=== PATIENT | male | born 1970 | race American Indian/Alaskan Native ===

== ENCOUNTER 2019-04-01 11:55 | Inpatient (IN) | payer MEDICAID ==
--- NOTE | 2019-04-01 12:17 | Emergency Department Report ---
ED Medical Clearance HPI - General Chief complaint: High BP Stated complaint: HBP Source: patient, EMS (ems notes not available at time of chart dictation), RN notes reviewed Mode of arrival: Stretcher Limitations: Physical Limitation - History of Present Illness Initial comments: This is a 48-year-old gentleman. The patient is not known to this provider previously. He reports his primary care doctor is at [facility], but cannot recall their name. He reportedly has a history of hypertension, noncompliant with medications for 6-8 weeks; does not recall the names of his medications. Does not know what pharmacy gets his medications from. Also has a history of stroke, with left-sided weakness. The patient is brought to the hospital by emergency medical services for a checkup. The patient's daughter is here as a patient for nonrelated reasons, and apparently, the patient started was involved in a 911 call involving police. When police kuldeep owens, they saw this patient, Mr. Cook, and they suggested he call ambulance to "get checked out for high blood pressure." Patient denies headache, neck pain, chest pain, abdominal pain, shortness of breath. He has no complaints at this time. He is at his neurologic baseline, and endorses chronic weakness in his left arm and left leg, which is not new, worsening or different. MD Complaint: other Reason for Medical Clearance: other Compliant with Home Medications: No Traumatic Symptoms: denies traumatic injury Allergies/Adverse reactions: Allergies Allergy/AdvReac Type Severity Reaction Status Date / Time No Known Allergies Allergy Unverified 04/01/19 12:06 ED Review of Systems ROS: Stated complaint: HBP Other details as noted in HPI Comment: All other systems reviewed and negative ED Past Medical Hx - Past Medical History Previous Medical History?: Yes Hx Hypertension: Yes Hx CVA: Yes - Social History Smoking Status: Never Smoker Substance Use Type: None ED Physical Exam - General Limitations: Physical Limitation General appearance: alert, in no apparent distress - Head Head exam: Present: atraumatic, normocephalic - Eye Eye exam: Present: normal appearance, PERRL, EOMI, other (visual acuity intact to finger counting, color perception, reading at a close distance). Absent: nystagmus - ENT ENT exam: Present: normal exam, normal orophraynx, mucous membranes moist, normal external ear exam - Neck Neck exam: Present: normal inspection, full ROM. Absent: tenderness, meningismus - Respiratory Respiratory exam: Present: normal lung sounds bilaterally. Absent: respiratory distress - Cardiovascular Cardiovascular Exam: Present: regular rate, normal rhythm, systolic murmur. Absent: tachycardia, irregular rhythm, diastolic murmur, rubs, gallop - GI/Abdominal GI/Abdominal exam: Present: soft. Absent: distended, tenderness, guarding, rebound, rigid, pulsatile mass - Rectal Rectal exam: Present: deferred - Extremities Exam Extremities exam: Present: normal inspection, other (2+ pulses noted in the bilateral upper, lower extremities. Compartments soft. No long bony tenderness. The pelvis is stable.). Absent: tenderness, calf tenderness - Back Exam Back exam: Present: normal inspection, full ROM. Absent: tenderness, CVA tenderness (R), CVA tenderness (L), paraspinal tenderness, vertebral tenderness - Neurological Exam Neurological exam: Present: alert, oriented X3, motor sensory deficit, other (there is chronic weakness in the left arm, left leg, 4 out of 5 strength left arm, left leg. There is no facial droop. The tongue is midline. Extraocular movement are intact bilaterally. There is 5 out of 5 strength right arm, right leg. Sensation is intact to light touch right arm, right leg, left arm, left leg) - Psychiatric Psychiatric exam: Present: normal affect, normal mood - Skin Skin exam: Present: warm, dry, intact, normal color. Absent: rash ED Course Vital Signs 04/01/19 04/01/19 12:06 13:14 Temperature 99.1 F Pulse Rate 85 92 H Respiratory 18 Rate Blood Pressure 248/120 245/120 O2 Sat by Pulse 98 Oximetry - Reevaluation(s) Reevaluation #1: 04/01/19 14:40 Dr Ramirez to admit ED Medical Decision Making - Lab Data Result diagrams: 04/01/19 13:09 04/01/19 12:20 Vital Signs 04/01/19 04/01/19 12:06 13:14 Temperature 99.1 F Pulse Rate 85 92 H Respiratory 18 Rate Blood Pressure 248/120 245/120 O2 Sat by Pulse 98 Oximetry Lab Results 04/01/19 04/01/19 Range/Units 12:20 13:09 WBC 7.4 (4.5-11.0) K/mm3 RBC 4.55 (3.65-5.03) M/mm3 Hgb 13.1 (11.8-15.2) gm/dl Hct 38.7 (35.5-45.6) % MCV 85 (84-94) fl MCH 29 (28-32) pg MCHC 34 (32-34) % RDW 13.5 (13.2-15.2) % Plt Count 302 (140-440) K/mm3 Sodium 144 (137-145) mmol/L Potassium 3.1 L (3.6-5.0) mmol/L Chloride 102.5 (98-107) mmol/L Carbon Dioxide 27 (22-30) mmol/L Anion Gap 18 mmol/L BUN 22 H (9-20) mg/dL Creatinine 2.1 H (0.8-1.5) mg/dL Estimated GFR 41 ml/min BUN/Creatinine Ratio 10 % Glucose 89 (75-100) mg/dL Calcium 9.5 (8.4-10.2) mg/dL Magnesium 2.00 (1.7-2.3) mg/dL Total Creatine Kinase 232 H (55-170) units/L - EKG Data -: EKG Interpreted by Nh EKG shows normal: sinus rhythm - EKG Data When compared to previous EKG there are: previous EKG unavailable 04/01/19 14:04 This is a normal sinus rhythm, 93 bpm, normal axis, QTC prolonged, DE interval prolonged, not having chest pain, ST depressions in multiple leads, poor R-wave progression, left ventricular hypertrophy, abnormal EKG, not consistent with ST elevation myocardial infarction. - Medical Decision Making Differential diagnosis, including not limited to: Hypertension urgency, medication noncompliance, vasomotor nephropathy, hypertensive nephropathy Assessment and plan: 48-year-old gentleman who presents to the emergency room for a checkup, felt to be fairly hypertensive, no pain, also found to have e vidence of acute renal insufficiency. The patient will be admitted to the medical service for medical optimization. He will be given hydralazine, Norvasc, and his potassium will be repleted. Hospital physicians paged to arrange admission. Discussed hospitalization with patient, who verbalizes un derstanding, and who is amenable to hospitalization. ED Disposition Clinical Impression: Hypertensive urgency, malignant, Noncompliance with medication regimen, Renal insufficiency Disposition: DC-09 OP ADMIT IP TO THIS HOSP Is pt being admited?: Yes Does the pt Need Aspirin: Yes Condition: Fair Referrals: JOANA WU MD [Primary Care Provider] - 3-5 Days
[2019-04-01] MEDS ORDERED: APRESOLINE IV ONE ×2 (12:18→13:50)
[2019-04-01] MEDS ORDERED: NACL 0.9% 500 ML 500 ML IV ONE (12:18)
[2019-04-01 12:59] LABS: Calcium 9.5 mg/dL (8.4-10.2)
[2019-04-01 13:28] LABS: Hematocrit 38.7 % (35.5-45.6); Hemoglobin 13.1 gm/dl (11.8-15.2); Mean Corpuscular HGB Conc 34 % (32-34); Mean Corpuscular Volume 85 fl (84-94); Platelet Count 302 K/mm3 (140-440); Red Blood Count 4.55 M/mm3 (3.65-5.03); Red Cell Distribution Width 13.5 % (13.2-15.2)
[2019-04-01] MEDS ORDERED: NORVASC PO ONE (13:50)
[2019-04-01] MEDS ORDERED: K-DUR PO ONE ×2 (13:54→21:28)
[2019-04-01] MEDS ORDERED: BABY ASPIRIN PO ONE (13:56)
[2019-04-01 14:19] LABS: Bilirubin,Urine NEG (Negative); Blood,Urine NEG (Negative); Color,Urine Straw (Yellow); Mucus,Urine FEW /HPF; Urobilinogen,Urine < 2.0 mg/dL (<2.0); WBC,Urine < 1.0 /HPF (0.0-6.0)
[2019-04-01 14:27] LABS: Creatinine,Urine 84.3 mg/dL (0.1-20.0)
[2019-04-01] MEDS ORDERED: SODIUM CHLORIDE FLUSH SYRINGE 10 ML IV PRN (21:20)
[2019-04-01] MEDS ORDERED: TYLENOL PO PRN (21:20)
[2019-04-01] MEDS ORDERED: IBUPROFEN PO PRN (21:20)
[2019-04-01] MEDS ORDERED: ZOFRAN IV PRN (21:20)
[2019-04-01] MEDS ORDERED: MORPHINE IV PRN (21:20)
[2019-04-01] MEDS: COREG PO SCH (21:47)
[2019-04-01] MEDS: PEPCID PO SCH (21:49)
[2019-04-01] MEDS: SODIUM CHLORIDE FLUSH SYRINGE 10 ML IV SCH (21:50)
[2019-04-01] MEDS ORDERED: PEPCID PO SCH (22:00)
[2019-04-01] MEDS ORDERED: COZAAR PO SCH (22:00)
[2019-04-02] MEDS: APRESOLINE IV PRN ×2 (05:32→20:25)
--- NOTE | 2019-04-02 05:56 | Event Note ---
Date: 04/01/19 See H/p in eports-dictated HTN emergency Soraida Noncompliance
--- NOTE | 2019-04-02 07:36 | Progress Note ---
Assessment and Plan - Patient Problems (1) Acute kidney injury Current Visit: Yes Status: Acute Plan to address problem: RADHA on CKD ATN IV fluids for now Nephrology consult requested (2) Hypertensive urgency, malignant Current Visit: Yes Status: Acute Plan to address problem: Patient initiated on antihypertensives and IV Hydralazinr prn.IV Hydralazine g iven in ER (3) Noncompliance with medication regimen Current Visit: Yes Status: Chronic Plan to address problem: Patient counselled repeatedly (4) CKD (chronic kidney disease) Current Visit: Yes Status: Chronic Qualifiers: Chronic kidney disease stage: stage 3 (moderate) Qualified Code(s): N18.3 - Chronic kidney disease, stage 3 (moderate) Plan to address problem: Present on admission Chronic parenchymatous changes in Kidney c/w CKD (5) Hypokalemia Current Visit: Yes Status: Acute Plan to address problem: corrected (6) Hyperparathyroidism Current Visit: Yes Status: Chronic Plan to address problem: sec to CKD (7) DVT prophylaxis Current Visit: Yes Status: Acute Plan to address problem: On Heparin and GI prophylaxis Subjective Date of service: 04/02/19 Principal diagnosis: Hypertensive emergency CKD on admission Interval history: 48-year-old gentleman with history of hypertension, noncompliant with medications for 6-8 weeks; does not recall the names of his medications. Does not know what pharmacy gets his medications from. Also has a history of stroke, with left-sided weakness. The patient is brought to the hospital by emergency medical services for high BP. Apparently, the patient was involved in a 911 call involving police. When police arrived, they saw this patient, Mr. Cook, and they suggested he call ambulance to "get checked out for high blood pressure." Patient denies headache, neck pain, chest pain, abdominal pain, shortness of mame ath. He has no complaints at this time. He is at his neurologic baseline, and endorses chronic weakness in his left arm and left leg, which is not new, worsening or different. No sob.No chest pain. Objective - Constitutional Vitals: Vital Signs - 12hr 04/01/19 04/01/19 04/01/19 19:41 19:45 20:01 Temperature Pulse Rate 93 H 89 103 H Respiratory 12 20 22 Rate Blood Pressure 208/110 203/124 176/120 Blood Pressure [Right] O2 Sat by Pulse 97 98 97 Oximetry 04/01/19 04/01/19 04/01/19 20:15 20:30 20:45 Temperature Pulse Rate 97 H 90 92 H Respiratory 20 21 18 Rate Blood Pressure 176/120 195/99 195/99 Blood Pressure [Right] O2 Sat by Pulse 98 98 98 Oximetry 04/01/19 04/01/19 04/01/19 21:01 21:21 21:44 Temperature 98.0 F Pulse Rate 96 H 111 H 96 H Respiratory 19 16 18 Rate Blood Pressure 195/99 197/111 Blood Pressure 188/85 [Right] O2 Sat by Pulse 99 98 98 Oximetry 04/01/19 04/02/19 04/02/19 23:46 01:22 03:46 Temperature 98.0 F Pulse Rate 92 H 71 Respiratory 18 22 Rate Blood Pressure 149/89 Blood Pressure [Right] O2 Sat by Pulse 97 Oximetry 04/02/19 03:55 Temperature 98.0 F Pulse Rate 81 Respiratory 18 Rate Blood Pressure 173/96 Blood Pressure [Right] O2 Sat by Pulse 96 Oximetry General appearance: Present: no acute distress, well-nourished - EENT Eyes: PERRL, EOM intact ENT: hearing intact, clear oral mucosa Ears: bilateral: normal - Neck Neck: supple, normal ROM - Respiratory Respiratory effort: normal Respiratory: bilateral: CTA - Breasts Breasts: normal - Cardiovascular Rhythm: regular Heart Sounds: Present: S1 & S2. Absent: gallop, rub Extremities: no ischemia, pulses intact, No edema, normal color, Full ROM - Gastrointestinal General gastrointestinal: Present: soft, non-tender, non-distended, normal bowel sounds - Genitourinary Male genitourinary: normal - Integumentary Integumentary: clear, warm, dry - Musculoskeletal Musculoskeletal: 1, strength equal bilaterally - Neurologic Neurologic: moves all extremities - Psychiatric Psychiatric: memory intact, appropriate mood/affect, intact judgment & insight - Labs CBC & Chem 7: 04/02/19 07:55 04/03/19 09:42 Labs: Abnormal lab results 04/01/19 04/01/19 Range/Units 12:20 14:04 Potassium 3.1 L (3.6-5.0) mmol/L BUN 22 H (9-20) mg/dL Creatinine 2.1 H (0.8-1.5) mg/dL Total Creatine Kinase 232 H (55-170) units/L Urine Creatinine 84.3 H (0.1-20.0) mg/dL Short CBC 04/01/19 Range/Units 13:09 WBC 7.4 (4.5-11.0) K/mm3 Hgb 13.1 (11.8-15.2) gm/dl Hct 38.7 (35.5-45.6) % Plt Count 302 (140-440) K/mm3 BMP 04/01/19 12:20 Sodium 144 Potassium 3.1 L Chloride 102.5 Carbon Dioxide 27 BUN 22 H Creatinine 2.1 H Glucose 89 Calcium 9.5 Cardiac Enzymes 04/01/19 Range/Units 12:20 Total Creatine Kinase 232 H (55-170) units/L Urine 04/01/19 Range/Units 14:04 Urine Color Straw (Yellow) Urine pH 7.0 (5.0-7.0) Ur Specific [place] 1.011 (1.003-1.030) Urine Protein 100 mg/dl (Negative) mg/dL Urine Glucose (UA) 50 (Negative) mg/dL - Imaging and cardiology EKG: report reviewed
[2019-04-02 08:32] LABS: Basophils # (Auto) 0.1 K/mm3 (0.0-0.1); Basophils % (Auto) 0.9 % (0.0-1.8); Eosinophils # (Auto) 0.1 K/mm3 (0.0-0.4); Eosinophils % (Auto) 0.7 % (0.0-4.3); Hematocrit 38.5 % (35.5-45.6); Hemoglobin 13.1 gm/dl (11.8-15.2); Lymphocytes # (Auto) 1.7 K/mm3 (1.2-5.4); Lymphocytes % (Auto) 22.7 % (13.4-35.0); Mean Corpuscular HGB Conc 34 % (32-34); Mean Corpuscular Volume 85 fl (84-94); Monocytes # (Auto) 0.6 K/mm3 (0.0-0.8); Platelet Count 333 K/mm3 (140-440); Red Blood Count 4.56 M/mm3 (3.65-5.03); Red Cell Distribution Width 13.8 % (13.2-15.2)
[2019-04-02 08:53] LABS: Calcium 9.4 mg/dL (8.4-10.2)
[2019-04-02] MEDS: PEPCID PO SCH ×2 (09:23→21:09)
[2019-04-02] MEDS: NORVASC PO SCH (09:23)
[2019-04-02] MEDS: COREG PO SCH ×2 (09:23→21:09)
[2019-04-02] MEDS: HEPARIN SUB-Q SCH ×2 (09:24→21:09)
[2019-04-02] MEDS: SODIUM CHLORIDE FLUSH SYRINGE 10 ML IV SCH ×2 (09:35→21:09)
--- NOTE | 2019-04-02 09:45 | History and Physical Report ---
CHIEF COMPLAINT: Sent in for high blood pressure. HISTORY OF PRESENT ILLNESS: A 48-year-old -[place] male with history of hypertension, noncompliant for the last 6-8 weeks, comes in for high blood pressure. The patient came by EMS for high blood pressure. The patient called 911. The patient denies any headache, chest pain, shortness of breath. No other complaints except for high blood pressure. The patient has not been taking blood pressure medication for the last 6-8 weeks. The patient does not know the names of his blood pressure medications. PAST MEDICAL HISTORY: Hypertension, cerebrovascular accident with slight residual left-sided weakness. PAST SURGICAL HISTORY: None. SOCIAL HISTORY: Does not smoke. No alcohol, no recreational drugs. FAMILY HISTORY: Hypertension. REVIEW OF SYSTEMS: Significant for no complaints. A 14-point review of systems done. High blood pressure. PHYSICAL EXAMINATION: GENERAL: Young male, cooperative during examination. VITAL SIGNS: Initial blood pressure was very high 248/120, temperature was 99.1, pulse is 94, respiratory rate is 18. HEENT: Unremarkable. Pupils equal and reactive. NECK: Supple, no lymphadenopathy, no thyromegaly. Fundus exam consistent with hypertension. No papilledema. NECK: Supple, no lymphadenopathy, no thyromegaly. LUNGS: Clear to auscultation and percussion. Good air entry. CARDIOVASCULAR: S1, S2 heard. No gallop, no murmur, no rub. Apical impulse in left fifth intercostal space and midclavicular line. ABDOMEN: Soft and benign. No hepatosplenomegaly. No guarding, no rigidity. Hernial orifices are normal. EXTREMITIES: Good pedal pulses. No pedal edema. CENTRAL NERVOUS SYSTEM: Alert and oriented x 4, nonfocal exam. SKIN: Normal. LABORATORY DATA: Significant for normal CBC. Electrolytes: Sodium is 144, potassium is 3.1, BUN and creatinine is 22 and 2.1, magnesium is 2.0. Urine is normal. Urine creatinine is 84.3. EKG shows LVH. Heart rate of 78 per minute. ASSESSMENT AND PLAN: 1. Hypertensive emergency. The patient initiated on IV hydralazine and IV labetalol in the Emergency Room. The patient was also initiated on losartan 100 mg once a day and amlodipine 10 mg once a day, Coreg 12.5 b.i.d. IV hydralazine 10 mg to be given every 3. hours. 2. Acute kidney injury. IV fluids for now, but the patient probably has underlying chronic kidney disease secondary to hypertension. Nephrology consult requested. 3. Hypokalemia, supplemented. 4. Deep venous thrombosis prophylaxis, heparin 5000 q. 12. JOB# [id number] CECE/MIGUEL SANDERSOND
--- NOTE | 2019-04-02 10:32 | XRay Report ---
AP CHEST: HISTORY: Acute kidney injury AP view of the chest demonstrates a normal mediastinal and cardiac contour with clear lungs and normal bony and soft tissue structures. IMPRESSION: Unremarkable AP chest.
[2019-04-02] MEDS ORDERED: NORMODYNE IV ONE (11:30)
--- NOTE | 2019-04-02 13:58 | Ultrasound Report ---
ULTRASOUND RENAL BILATERAL HISTORY: Acute kidney injury. TECHNIQUE: transabdominal ultrasound with color Doppler interrogation. FINDINGS: The right kidney measures 8.3 x 4.2 x 4.5cm. Right renal cortex: 1.1cm. The left kidney measures 8.9 x 4.0 x 4.9cm. Left renal cortex: 1.1cm. Both kidneys are slightly atrophic with increased cortical echotexture. There is no evidence for cystic disease, mass, calculus or hydronephrosis. The views of the bladder and the region of the ureters appear normal. IMPRESSION: Chronic renal parenchymal disease. No hydronephrosis.
--- NOTE | 2019-04-02 14:17 | Consultation ---
History of Present Illness - Reason for Consult acute renal failure - History of Present Illness 48-year-old gentleman with medical history significant for hypertension, previous CVA in 2015 and 2018 with left-sided deficits and speech problems was was in the hospital after being seen by the EMS at home with elevated blood pressures. He denies any orthopnea. Denies any lower extremity swelling denies any nausea vomiting abdominal pain denies any NSAID use denies any frequent urinary tract infections denies any kidney stones he has not had any follow-up by primary care provider he does have a sister who was on dialysis had diabetes. He admits to noncompliance with his medications because he complains of difficulty with swallowing pills Medications and Allergies Allergies Allergy/AdvReac Type Severity Reaction Status Date / Time No Known Allergies Allergy Verified 04/01/19 21:27 Home Medications Medication Instructions Recorded Confirmed Last Taken Type No Known Home Medications [No 04/01/19 04/01/19 Unknown History Reported Home Medications] Active Meds: Active Medications Acetaminophen (Tylenol) 650 mg PO Q4H PRN PRN Reason: Pain MILD(1-3)/Fever >100.5/OROZCO Amlodipine Besylate (Norvasc) 10 mg PO QDAY [facility] Last Admin: 04/02/19 09:23 Dose: 10 mg Documented by: Carvedilol (Coreg) 12.5 mg PO BID [facility] Last Admin: 04/02/19 09:23 Dose: 12.5 mg Documented by: Famotidine (Pepcid) 10 mg PO BID [facility] Last Admin: 04/02/19 09:23 Dose: 10 mg Documented by: Heparin Sodium (Porcine) (Heparin) 5,000 unit SUB-Q Q12HR [facility] Last Admin: 04/02/19 09:24 Dose: 5,000 unit Documented by: Hydralazine HCl (Apresoline) 10 mg IV Q3H PRN PRN Reason: Blood Pressure Last Admin: 04/02/19 05:32 Dose: 10 mg Documented by: Morphine Sulfate (Morphine) 2 mg IV Q4H PRN PRN Reason: Pain, Moderate (4-6) Ondansetron HCl (Zofran) 4 mg IV Q8H PRN PRN Reason: Nausea And Vomiting Sodium Chloride (Sodium Chloride Flush Syringe 10 Ml) 10 ml IV BID [facility] Last Admin: 04/02/19 09:35 Dose: 10 ml Documented by: Sodium Chloride (Sodium Chloride Flush Syringe 10 Ml) 10 ml IV PRN PRN PRN Reason: LINE FLUSH Review of Systems Constitutional: no weight loss, no weight gain Ears, nose, mouth and throat: no deferred, no ear pain, no ear discharge Cardiovascular: no chest pain, no orthopnea Respiratory: no cough, no cough with sputum Gastrointestinal: no abdominal pain, no nausea, no vomiting Genitourinary Male: no dysuria, no hematuria, no flank pain Rectal: no pain, no incontinence Musculoskeletal: no neck stiffness, no neck pain Neurological: no head injury, no transient paralysis Psychiatric: no anxiety, no memory loss Endocrine: no cold intolerance, no heat intolerance Hematologic/Lymphatic: no easy bruising, no easy bleeding Exam - Vital Signs Vital signs: Vital Signs Pulse Resp 94 H 18 04/01/19 11:56 04/01/19 11:56 - General Appearance General appearance: well-developed, well-nourished EENT: ATNC, PERRL, mucous membranes moist Neck: Present: neck supple, trachea midline Respiratory: Clear to Ascultation Heart: regular, normal heart rate, S1S2 Gastrointestinal: Present: normal, normoactive bowel sounds. Absent: tenderness, distended Integumentary: no rash Neurologic: alert and oriented x3, upper extremity weakness, other (reduced strength left lower extremity 4/5 ) Musculoskeletal: Present: clubbing, decreased ROM Psychiatric: mood/affect appropriate Results - Lab Results 04/02/19 07:55 04/02/19 07:39 Most recent lab results Calcium 9.4 mg/dL (8.4-10.2) 04/02/19 07:39 Magnesium 2.00 mg/dL (1.7-2.3) 04/01/19 12:20 84.3 mg/dL (0.1-20.0) H 04/01/19 14:04 107 mmol/L 04/01/19 14:04 Assessment and Plan - Patient Problems (1) Acute kidney injury Current Visit: Yes Status: Acute Plan to address problem: Acute kidney injury versus chronic kidney disease Current creatinine 2.0 mg/dl Has significant history of uncontrolled hypertension Suspect this is chronic kidney disease check PTH and renal ultrasound We'll give gentle fluids for the next 24 hours and monitor response Recheck renal function panel Hold losartan for now and avoid ibuprofen (2) Hypertensive urgency, malignant Current Visit: Yes Status: Acute Plan to address problem: Hypertensive urgency Received medications We'll give labetalol 20 mg IV Oral medications resume May need a patch as he has significant difficulty with swallowing due to previous stroke (3) Hypokalemia Current Visit: Yes Status: Acute Plan to address problem: Hypokalemia We'll give 40 mEq potassium chloride Check magnesium level (4) Anemia Current Visit: Yes Status: Acute Plan to address problem: Mild anemia Hemoglobin 13 g/dl Obtain an anemia panel beater CBC
[2019-04-02] MEDS ORDERED: K-DUR PO ONE (15:24)
[2019-04-02] MEDS: NACL 0.9% 1000 ML 1,000 ML IV SCH (16:28)
[2019-04-03] MEDS: NACL 0.9% 1000 ML 1,000 ML IV SCH (07:53)
[2019-04-03] MEDS: NORVASC PO SCH (09:46)
[2019-04-03] MEDS: COREG PO SCH ×3 (09:47→22:32)
[2019-04-03] MEDS: PEPCID PO SCH ×2 (09:47→22:32)
[2019-04-03] MEDS: APRESOLINE IV PRN ×2 (09:48→17:51)
[2019-04-03] MEDS: HEPARIN SUB-Q SCH ×2 (09:48→22:33)
[2019-04-03] MEDS: SODIUM CHLORIDE FLUSH SYRINGE 10 ML IV SCH ×2 (09:49→22:33)
[2019-04-03 10:18] LABS: Calcium 8.8 mg/dL (8.4-10.2)
--- NOTE | 2019-04-03 10:48 | Progress Note ---
Assessment and Plan - Patient Problems (1) Acute kidney injury Current Visit: Yes Status: Acute Plan to address problem: Acute kidney injury versus chronic kidney disease Current creatinine 2.1-2.3 mg/dl Has significant history of uncontrolled hypertension Suspect this is chronic kidney disease check PTH Renal ultrasound with small kidneys consistent hypertensive nephrosclerosis Discontinue intravenous fluids as renal function has not improved with fluids and this appears more chronic Reviewed urinalysis proteinuria Recheck renal function panel Hold losartan for now and avoid ibuprofen (2) Hypertensive urgency, malignant Current Visit: Yes Status: Acute Plan to address problem: Hypertensive urgency uncontrolled hypertension/uncontrolled hypertension Received medications Discontinue intravenous fluids Increase Coreg to 25 mg twice a day Continue rest of medications May need a patch as he has significant difficulty with swallowing due to pre vious stroke (3) Hypokalemia Current Visit: Yes Status: Acute Plan to address problem: Hypokalemia Potassium 3.5 We'll give 20 mEq potassium chloride Magnesium within normal levels (4) Anemia Current Visit: Yes Status: Acute Plan to address problem: Mild anemia Hemoglobin 13 g/dl Obtain an anemia manager monitoring CBC Subjective Interval history: 48-year-old gentleman with medical history significant for hypertension, previous CVA in 2014 and 2017 with left-sided deficits and speech problems was was in the hospital after being seen by the EMS at home with elevated blood pressures. He denies any orthopnea. Denies any lower extremity swelling denies any nausea vomiting abdominal pain denies any NSAID use Patient seen today denies any shortness of breath orthopnea PND Slight rise in creatinine noted Received losartan on arrival which has been discontinued Objective - Vital Signs Vital signs: Vital Signs - 12hr 04/02/19 04/03/19 04/03/19 23:28 04:02 08:22 Temperature 98.6 F 98.5 F 98.4 F Pulse Rate 82 89 71 Respiratory 18 18 16 Rate Blood Pressure 150/78 169/93 198/94 O2 Sat by Pulse 95 98 100 Oximetry 04/03/19 04/03/19 04/03/19 09:46 09:47 09:48 Temperature Pulse Rate 90 90 90 Respiratory Rate Blood Pressure 215/104 215/104 215/104 O2 Sat by Pulse Oximetry - General Appearance General appearance: well-developed, well-nourished EENT: ATNC, PERRL, mucous membranes moist Neck: no JVD Respiratory: Present: Decreased Breath Sounds Cardiology: regular, S1S2 Gastrointestinal: normal, normoactive bowel sounds Integumentary: no rash Neurologic: alert and oriented x3, other (left sided weakness) Psychiatric: mood/affect appropriate - Lab 04/02/19 07:55 04/03/19 09:42 Most recent lab results Calcium 8.8 mg/dL (8.4-10.2) 04/03/19 09:42 Magnesium 2.20 mg/dL (1.7-2.3) 04/02/19 15:16 84.3 mg/dL (0.1-20.0) H 04/01/19 14:04 107 mmol/L 04/01/19 14:04 - Imaging Chest x-ray: image reviewed (I reviewed chest x-ray without and with pulmonary edema) Medications & Allergies - Medications Allergies/Adverse Reactions: Allergies No Known Allergies Allergy (Verified 04/01/19 21:27) Home Medications: Home Medications Medication Instructions Recorded Confirmed Last Taken Type No Known Home Medications [No 04/01/19 04/01/19 Unknown History Reported Home Medications] Active Medications: Generic Name Dose Route Start Last Admin Trade Name Freq PRN Reason Stop Dose Admin Acetaminophen 650 mg 04/01/19 21:20 Tylenol PO Q4H PRN Pain MILD(1-3)/Fever >100.5/OROZCO Amlodipine Besylate 10 mg 04/02/19 10:00 04/03/19 09:46 Norvasc PO 10 mg QDAY ANABELA Administration Famotidine 10 mg 04/01/19 22:00 04/03/19 09:47 Pepcid PO 10 mg BID ANABELA Administration Heparin Sodium (Porcine) 5,000 unit 04/02/19 10:00 04/03/19 09:48 Heparin SUB-Q 5,000 unit Q12HR ANABELA Administration Hydralazine HCl 20 mg 04/02/19 20:37 04/03/19 09:48 Apresoline IV 20 mg Q4H PRN Administration Blood Pressure Sodium Chloride 1,000 mls @ 100 mls/hr 04/02/19 15:00 04/03/19 07:53 Nacl 0.9% 1000 Ml IV 100 mls/hr DIRECT ANABELA Administration Morphine Sulfate 2 mg 04/01/19 21:20 Morphine IV Q4H PRN Pain, Moderate (4-6) Ondansetron HCl 4 mg 04/01/19 21:20 Zofran IV Q8H PRN Nausea And Vomiting Sodium Chloride 10 ml 04/01/19 22:00 04/03/19 09:49 Sodium Chloride Flush Syringe 10 Ml IV 10 ml BID ANABELA Administration Sodium Chloride 10 ml 04/01/19 21:20 Sodium Chloride Flush Syringe 10 Ml IV PRN PRN LINE FLUSH
[2019-04-03] MEDS ORDERED: K-DUR PO ONE (17:48)
--- NOTE | 2019-04-03 17:48 | Progress Note ---
Assessment and Plan - Patient Problems (1) Acute kidney injury Current Visit: Yes Status: Acute Plan to address problem: RADHA on CKD ATN IV fluids for now Nephrology consult requested (2) Hypertensive urgency, malignant Current Visit: Yes Status: Acute Plan to address problem: Patient initiated on antihypertensives and IV Hydralazinr prn.IV Hydralazine g iven in ER (3) Noncompliance with medication regimen Current Visit: Yes Status: Chronic Plan to address problem: Patient counselled repeatedly (4) CKD (chronic kidney disease) Current Visit: Yes Status: Chronic Qualifiers: Chronic kidney disease stage: stage 3 (moderate) Qualified Code(s): N18.3 - Chronic kidney disease, stage 3 (moderate) Plan to address problem: Present on admission Chronic parenchymatous changes in Kidney c/w CKD (5) Hypokalemia Current Visit: Yes Status: Acute Plan to address problem: corrected (6) Hyperparathyroidism Current Visit: Yes Status: Chronic Plan to address problem: sec to CKD (7) DVT prophylaxis Current Visit: Yes Status: Acute Plan to address problem: On Heparin and GI prophylaxis (8) Discharge planning issues Current Visit: Yes Status: Acute Plan to address problem: Probable discharge tomorrow if BP and K level normal Subjective Date of service: 04/03/19 Principal diagnosis: Hypertensive emergency CKD on admission Interval history: 48-year-old gentleman with history of hypertension, noncompliant with medications for 6-8 weeks; does not recall the names of his medications. Does not know what pharmacy gets his medications from. Also has a history of stroke, with left-sided weakness. The patient is brought to the hospital by emergency medical services for high BP. Apparently, the patient was involved in a 911 call involving police. When police arrived, they saw this patient, Mr. Cook, and they suggested he call ambulance to "get checked out for high blood pressure." Patient denies headache, neck pain, chest pain, abdominal pain, shortness of breath. He has no complaints at this time. He is at his neurologic baseline, and endorses chronic weakness in his left arm and left leg, which is not new, worsening or different. No sob.No chest pain. Doing better Objective - Constitutional Vitals: Vital Signs - 12hr 04/03/19 04/03/19 04/03/19 08:22 09:46 09:47 Temperature 98.4 F Pulse Rate 71 90 90 Respiratory 16 Rate Blood Pressure 198/94 215/104 215/104 Blood Pressure [Right] O2 Sat by Pulse 100 Oximetry 04/03/19 04/03/19 04/03/19 09:48 10:00 12:45 Temperature Pulse Rate 90 68 84 Respiratory 18 18 Rate Blood Pressure 215/104 Blood Pressure 157/85 [Right] O2 Sat by Pulse 98 Oximetry 04/03/19 14:57 Temperature 97.7 F Pulse Rate 75 Respiratory 16 Rate Blood Pressure 170/75 Blood Pressure [Right] O2 Sat by Pulse 98 Oximetry General appearance: Present: no acute distress, well-nourished - EENT Eyes: PERRL, EOM intact ENT: hearing intact, clear oral mucosa Ears: bilateral: normal - Neck Neck: supple, normal ROM - Respiratory Respiratory effort: normal Respiratory: bilateral: CTA - Breasts Breasts: normal - Cardiovascular Heart rate: 78 Rhythm: regular Heart Sounds: Present: S1 & S2. Absent: gallop, rub Extremities: pulses intact, No edema, normal color, Full ROM - Gastrointestinal General gastrointestinal: Present: soft, non-tender, non-distended, normal bowel sounds - Genitourinary Male genitourinary: normal - Integumentary Integumentary: clear, warm, dry - Musculoskeletal Musculoskeletal: 1, strength equal bilaterally - Neurologic Neurologic: moves all extremities - Psychiatric Psychiatric: memory intact, appropriate mood/affect, intact judgment & insight - Allied health notes Allied health notes reviewed: nursing, case management - Labs CBC & Chem 7: 04/02/19 07:55 04/03/19 09:42 Labs: Abnormal lab results 04/03/19 Range/Units 09:42 Potassium 3.5 L (3.6-5.0) mmol/L Carbon Dioxide 21 L (22-30) mmol/L BUN 25 H (9-20) mg/dL Creatinine 2.3 H (0.8-1.5) mg/dL Glucose 135 H (75-100) mg/dL Renal U/s Chronic parenchuymal changes
[2019-04-03] MEDS ORDERED: COREG PO SCH (18:00)
[2019-04-04 06:46] LABS: Basophils # (Auto) 0.1 K/mm3 (0.0-0.1); Eosinophils # (Auto) 0.1 K/mm3 (0.0-0.4); Eosinophils % (Auto) 1.7 % (0.0-4.3); Hematocrit 38.2 % (35.5-45.6); Hemoglobin 12.8 gm/dl (11.8-15.2); Lymphocytes # (Auto) 2.2 K/mm3 (1.2-5.4); Lymphocytes % (Auto) 36.8 % (13.4-35.0); Mean Corpuscular HGB Conc 33 % (32-34); Mean Corpuscular Volume 87 fl (84-94); Monocytes # (Auto) 0.6 K/mm3 (0.0-0.8); Monocytes % (Auto) 9.6 % (0.0-7.3); Platelet Count 305 K/mm3 (140-440); Red Blood Count 4.42 M/mm3 (3.65-5.03); Red Cell Distribution Width 13.5 % (13.2-15.2)
[2019-04-04 07:12] LABS: Albumin 3.7 g/dL (3.9-5)
[2019-04-04] MEDS: NORVASC PO SCH (09:40)
[2019-04-04] MEDS: COREG PO SCH (09:40)
[2019-04-04] MEDS: HEPARIN SUB-Q SCH (09:40)
[2019-04-04] MEDS: PEPCID PO SCH (09:40)
[2019-04-04] MEDS: SODIUM CHLORIDE FLUSH SYRINGE 10 ML IV SCH (09:42)
--- NOTE | 2019-04-04 10:26 | Progress Note ---
Assessment and Plan - Patient Problems (1) Chronic kidney disease (CKD) stage G3b/A2, moderately decreased glomerular filtration rate (GFR) between 30-44 mL/min/1.73 square meter and albuminuria creatinine ratio between 30-299 mg/g Current Visit: Yes Status: Acute Plan to address problem: chronic kidney disease Current creatinine 2.1-2.3 mg/dl Has significant history of uncontrolled hypertension Suspect this is chronic kidney disease check PTH Renal ultrasound with small kidneys consistent hypertensive nephrosclerosis Discontinue intravenous fluids as renal function has not improved with fluids and this appears more chronic Reviewed urinalysis proteinuria I suspect this is all chronic kidney disease He needs HTN control can be discharged home with follow up at Nephrology clinic. (2) Hypertensive urgency, malignant Current Visit: Yes Status: Acute Plan to address problem: Hypertensive urgency uncontrolled hypertension/uncontrolled hypertension Received medications Discontinue intravenous fluids Increase Coreg to 25 mg twice a day Continue rest of medications May need a patch as he has significant difficulty with swallowing due to prev ious stroke (3) Hypokalemia Current Visit: Yes Status: Acute Plan to address problem: Hypokalemia Potassium 3.4 We'll give 40 mEq potassium chloride Magnesium within normal levels (4) Anemia Current Visit: Yes Status: Acute Plan to address problem: Mild anemia Hemoglobin 13 g/dl 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 He denies any orthopnea. Denies any lower extremity swelling denies any nausea vomiting abdominal pain denies any NSAID use Patient seen today denies any shortness of breath orthopnea PND blood pressure improving denies any fever or chills anxious to be discharged. Objective - Vital Signs Vital signs: Vital Signs - 12hr 04/03/19 04/03/19 04/04/19 22:32 23:13 04:10 Temperature 98.6 F 98.3 F Pulse Rate 94 H 69 60 Respiratory 18 19 Rate Blood Pressure 179/89 138/60 154/71 O2 Sat by Pulse 95 95 Oximetry - General Appearance General appearance: well-developed, well-nourished EENT: ATNC, PERRL, mucous membranes moist Neck: no JVD, thyromegaly Respiratory: Present: Clear to Ascultation Cardiology: regular, S1S2 Gastrointestinal: normal, normoactive bowel sounds Integumentary: no rash Neurologic: no focal deficit, alert and oriented x3 Psychiatric: mood/affect appropriate - Lab 04/04/19 05:41 04/04/19 05:41 Most recent lab results Calcium 9.0 mg/dL (8.4-10.2) 04/04/19 05:41 Magnesium 2.20 mg/dL (1.7-2.3) 04/02/19 15:16 84.3 mg/dL (0.1-20.0) H 04/01/19 14:04 107 mmol/L 04/01/19 14:04 - Imaging Chest x-ray: image reviewed (I reviewed CXR without overt edema. ) Medications & Allergies - Medications Allergies/Adverse Reactions: Allergies No Known Allergies Allergy (Verified 04/01/19 21:27) Home Medications: Home Medications Medication Instructions Recorded Confirmed Last Taken Type No Known Home Medications [No 04/01/19 04/01/19 Unknown History Reported Home Medications] Active Medications: Generic Name Dose Route Start Last Admin Trade Name Freq PRN Reason Stop Dose Admin Acetaminophen 650 mg 04/01/19 21:20 Tylenol PO Q4H PRN Pain MILD(1-3)/Fever >100.5/OROZCO Amlodipine Besylate 10 mg 04/02/19 10:00 04/04/19 09:40 Norvasc PO 10 mg QDAY ANABELA Administration Carvedilol 25 mg 04/03/19 18:00 04/04/19 09:40 Coreg PO 25 mg Q12HR ANABELA Administration Famotidine 10 mg 04/01/19 22:00 04/04/19 09:40 Pepcid PO 10 mg BID ANABELA Administration Heparin Sodium (Porcine) 5,000 unit 04/02/19 10:00 04/04/19 09:40 Heparin SUB-Q 5,000 unit Q12HR ANABELA Administration Hydralazine HCl 20 mg 04/02/19 20:37 04/03/19 17:51 Apresoline IV 20 mg Q4H PRN Administration Blood Pressure Morphine Sulfate 2 mg 04/01/19 21:20 Morphine IV Q4H PRN Pain, Moderate (4-6) Ondansetron HCl 4 mg 04/01/19 21:20 Zofran IV Q8H PRN Nausea And Vomiting Sodium Chloride 10 ml 04/01/19 22:00 04/04/19 09:42 Sodium Chloride Flush Syringe 10 Ml IV 10 ml BID ANABELA Administration Sodium Chloride 10 ml 04/01/19 21:20 Sodium Chloride Flush Syringe 10 Ml IV PRN PRN LINE FLUSH
[2019-04-04] MEDS ORDERED: K-DUR PO NR (11:00)
--- NOTE | 2019-04-04 16:44 | Discharge Summary ---
Providers - Providers Date of Admission: 04/01/19 14:41 Date of discharge: 04/04/19 Attending physician: RAHAT CRUZ 04/02/19 06:05 Consult to Physician [CONS] Routine Comment: Consulting Provider: OMID FLOYD Physician Instructions: Reason For Exam: RADHA/CKD [facility] care physician: [facility] Hospitalization Condition: Fair Pertinent studies: Renal Ultrasound Chronic renal parenchymal disease Hospital course: (1) Acute kidney injury with CKD Current Visit: Yes Status: Acute Plan to address problem: RADHA on CKD ATN IV fluids for now Nephrology consult requested Chronic kidney disease (CKD) stage G3b/A2, moderately decreased glomerular filtration rate (GFR) between 30-44 mL/min/1.73 square meter and albuminuria creatinine ratio between 30-299 mg/g Current Visit: Yes Status: Acute Plan to address problem: chronic kidney disease Current creatinine 2.1-2.3 mg/dl Has significant history of uncontrolled hypertension Suspect this is chronic kidney disease check PTH Renal ultrasound with small kidneys consistent hypertensive nephrosclerosis Discontinue intravenous fluids as renal function has not improved with fluids and this appears more chronic Reviewed urinalysis proteinuria I suspect this is all chronic kidney disease He needs HTN control can be discharged home with follow up at Nephrology clinic. (2) Hypertensive urgency, malignant Current Visit: Yes Status: Acute Plan to address problem: Patient initiated on antihypertensives and IV Hydralazinr prn.IV Hydralazine given in ER reasonable Patient counselled about compliance (3) Noncompliance with medication regimen Current Visit: Yes Status: Chronic Plan to address problem: Patient counselled repeatedly (4) CKD (chronic kidney disease) Current Visit: Yes Status: Chronic Qualifiers: Chronic kidney disease stage: stage 3 (moderate) Qualified Code(s): N18.3 - Chronic kidney disease, stage 3 (moderate) Plan to address problem: Present on admission Chronic parenchymatous changes in Kidney c/w CKD See above (5) Hypokalemia Current Visit: Yes Status: Acute Plan to address problem: corrected (6) Hyperparathyroidism Current Visit: Yes Status: Chronic Plan to address problem: sec to CKD Disposition: DC-01 TO HOME OR SELFCARE Core Measure Documentation - Palliative Care Palliative Care/ Comfort Measures: Not Applicable - Core Measures Any of the following diagnoses?: none Exam - Constitutional Vitals: Temp Pulse Resp BP Pulse Ox 98.2 F 64 20 169/87 96 04/04/19 12:25 04/04/19 12:25 04/04/19 12:25 04/04/19 12:25 04/04/19 12:25 General appearance: Present: no acute distress, well-nourished - EENT Eyes: Present: PERRL ENT: hearing intact, clear oral mucosa - Neck Neck: Present: supple, normal ROM - Respiratory Respiratory effort: normal Respiratory: bilateral: CTA - Cardiovascular Heart Sounds: Present: S1 & S2. Absent: rub, click - Extremities Extremities: no ischemia, pulses intact, pulses symmetrical, No edema Peripheral Pulses: within normal limits - Abdominal General gastrointestinal: Present: soft, non-tender, non-distended, normal bowel sounds Male genitourinary: Present: normal - Rectal Rectal Exam: deferred - Integumentary Integumentary: Present: clear, warm, dry - Musculoskeletal Musculoskeletal: gait normal, strength equal bilaterally - Psychiatric Psychiatric: appropriate mood/affect, intact judgment & insight - Neurologic Neurologic: CNII-XII intact, moves all extremities - Allied Health Allied health notes reviewed: nursing, case management Plan Activity: no restrictions Diet: renal
[2019-04-04] MEDS ORDERED: K-DUR PO ONE (16:53)
[2019-04-04 18:19] VITALS: BP 178/94
[2019-04-06 12:22] LABS: ANA Screen, IFA Negative (Negative)
== END 2019-04-04 19:00 | disposition home or self-care (01) | DRG 304 ==
LOC: ED 11:55 → 4A 14:41
PROVIDERS: ADMIT Internal Medicine; ATTEND Internal Medicine
DX: I16.1 Hypertensive emergency (principal); N17.0 Acute kidney failure with tubular necrosis; I16.0 Hypertensive urgency; E87.6 Hypokalemia; I69.354 Hemiplegia and hemiparesis following cerebral infarction affecting left non-dominant side; I12.9 Hypertensive chronic kidney disease with stage 1 through stage 4 chronic kidney disease, or unspecified chronic kidney disease; N18.3 Chronic kidney disease, stage 3 (moderate); E21.3 Hyperparathyroidism, unspecified; D64.9 Anemia, unspecified; Z91.14 Patient's other noncompliance with medication regimen
CPT/HCPCS: 36415; 71045; 76770; 80048; 80053; 81001; 82550; 82570; 82962; 83036; 83735; 83970; 84300; 85025; 85027; 86038; 86160; 86225; 86334; 93005; 93010; G0378; J0360; J1644; J7030; J7040

== ENCOUNTER 2019-09-05 19:36 | Emergency (ER) | payer MEDICAID ==
[2019-09-05] MEDS ORDERED: carvediloL 25 MG TAB PO STA (20:16)
[2019-09-05] MEDS ORDERED: hydrALAZINE 25 MG TAB PO STA (20:16)
[2019-09-05] MEDS ORDERED: amLODIPine 10 MG TAB PO STA (20:16)
--- NOTE | 2019-09-05 20:18 | Emergency Department Report ---
ED General Adult HPI - General Chief complaint: High BP Stated complaint: HTN Time Seen by Provider: 09/05/19 20:08 Source: patient, EMS ( EMS documentation not available at time of chart dictation ), RN notes reviewed, old records reviewed Mode of arrival: Stretcher Limitations: No Limitations - History of Present Illness Initial comments: This is a 49-year-old gentleman. The patient has a history of hypertension, renal insufficiency and noncompliance. I saw this patient a few months ago with a complaint of painless hypertension. He was seen and evaluated by nephrology, who recommended that the patient most likely had chronic renal insufficiency. He was discharged with a number of medications. He reports that he is not taking his medications. He's been out of his medications for months. He presents to the ER with a primary complaint of high blood pressure. He is not having physical pain. Apparently, family contacted emergency medical services was the patient endorsed painless lower extremity swelling. This is intermittent and acute on chronic. The patient denies physical pain. He denies DVT and pulmonary embolism risk factors. -: Gradual Location: left, right, lower extremity Severity scale (0 -10): 0 Consistency: intermittent Improves with: none Worsens with: none - Related Data Previous Rx's Medication Instructions Recorded Last Taken Type Aspirin [Aspirin BABY CHEW TAB] 81 mg PO QDAY #30 tab.chew 09/05/19 Unknown Rx Famotidine [Pepcid] 20 mg PO QDAY #30 tablet 09/05/19 Unknown Rx amLODIPine 10 mg PO QDAY #30 tablet 09/05/19 Unknown Rx carvediloL [Coreg] 25 mg PO Q12HR #60 tablet 09/05/19 Unknown Rx hydrALAZINE [Apresoline TAB] 50 mg PO Q12H #60 tab 09/05/19 Unknown Rx Allergies Allergy/AdvReac Type Severity Reaction Status Date / Time No Known Allergies Allergy Verified 04/01/19 21:27 ED Review of Systems ROS: Stated complaint: HTN Other details as noted in HPI Constitutional: denies: fever Eyes: denies: eye discharge Respiratory: denies: shortness of breath, wheezing Cardiovascular: denies: chest pain, syncope Gastrointestinal: denies: abdominal pain, nausea, vomiting, diarrhea, hematem esis, melena Genitourinary: denies: urgency Musculoskeletal: other Skin: denies: lesions Neurological: denies: weakness Hematological/Lymphatic: denies: easy bleeding ED Past Medical Hx - Past Medical History Hx Hypertension: Yes Hx CVA: Yes - Social History Smoking Status: Never Smoker Substance Use Type: None - Medications Home Medications: Home Medications Medication Instructions Recorded Confirmed Last Taken Type Aspirin [Aspirin BABY CHEW TAB] 81 mg PO QDAY #30 tab.chew 09/05/19 Unknown Rx Famotidine [Pepcid] 20 mg PO QDAY #30 tablet 09/05/19 Unknown Rx amLODIPine 10 mg PO QDAY #30 tablet 09/05/19 Unknown Rx carvediloL [Coreg] 25 mg PO Q12HR #60 tablet 09/05/19 Unknown Rx hydrALAZINE [Apresoline TAB] 50 mg PO Q12H #60 tab 09/05/19 Unknown Rx ED Physical Exam - General Limitations: No Limitations General appearance: alert, in no apparent distress - Head Head exam: Present: atraumatic, normocephalic - Eye Eye exam: Present: normal appearance, EOMI. Absent: nystagmus - ENT ENT exam: Present: normal exam, normal orophraynx, mucous membranes moist, normal external ear exam - Neck Neck exam: Present: normal inspection, full ROM. Absent: tenderness, meningismus - Respiratory Respiratory exam: Present: normal lung sounds bilaterally. Absent: respiratory distress - Cardiovascular Cardiovascular Exam: Present: regular rate, normal rhythm, normal heart sounds. Absent: bradycardia, tachycardia, irregular rhythm, systolic murmur, diastolic murmur, rubs, gallop - GI/Abdominal GI/Abdominal exam: Present: soft. Absent: distended, tenderness, guarding, rebound, rigid, pulsatile mass - Rectal Rectal exam: Present: deferred - Extremities Exam Extremities exam: Present: normal inspection, full ROM, other (2+ pulses noted in the bilateral upper, lower extremities. There is no long bone tenderness. Musculoskeletal compartments are soft. The pelvis is stable.). Absent: pedal edema, joint swelling, calf tenderness - Back Exam Back exam: Present: normal inspection, full ROM. Absent: tenderness, CVA tenderness (R), paraspinal tenderness, vertebral tenderness - Neurological Exam Neurological exam: Present: alert, other (there is no facial droop. The tongue is midline. Extraocular movements are intact bilaterally. Patient speaking in full complete sentences. Shoulder shrug is intact bilaterally. Hearing is grossly intact bilaterally. Visual acuity intact to finger counting and color perception at a close distance. 5/5 strength 4 extremities. Sensation intact to light touch in 4 extremities.) - Psychiatric Psychiatric exam: Present: normal affect, normal mood - Skin Skin exam: Present: warm, dry, intact, normal color. Absent: rash ED Course Vital Signs 09/05/19 09/05/19 09/05/19 20:08 20:15 20:35 Temperature 98.1 F Pulse Rate 80 80 Respiratory 18 18 Rate Blood Pressure 224/119 Blood Pressure 238/112 [Right] O2 Sat by Pulse 98 98 Oximetry 09/05/19 09/05/19 20:36 22:32 Temperature Pulse Rate 80 80 Respiratory 19 Rate Blood Pressure 224/119 Blood Pressure 207/105 [Right] O2 Sat by Pulse 98 Oximetry ED Medical Decision Making - Lab Data Result diagrams: 09/05/19 20:24 09/05/19 20:24 Vital Signs 09/05/19 09/05/19 09/05/19 20:08 20:15 20:35 Temperature 98.1 F Pulse Rate 80 80 Respiratory 18 18 Rate Blood Pressure 224/119 Blood Pressure 238/112 [Right] O2 Sat by Pulse 98 98 Oximetry 09/05/19 09/05/19 20:36 22:32 Temperature Pulse Rate 80 80 Respiratory 19 Rate Blood Pressure 224/119 Blood Pressure 207/105 [Right] O2 Sat by Pulse 98 Oximetry Lab Results 09/05/19 09/05/19 09/05/19 Range/Units 20:15 20:24 20:24 WBC 7.2 (4.5-11.0) K/mm3 RBC 4.28 (3.65-5.03) M/mm3 Hgb 12.3 (11.8-15.2) gm/dl Hct 36.3 (35.5-45.6) % MCV 85 (84-94) fl MCH 29 (28-32) pg MCHC 34 (32-34) % RDW 13.6 (13.2-15.2) % Plt Count 281 (140-440) K/mm3 PT 12.2 (12.2-14.9) Sec. INR 0.91 (0.87-1.13) Sodium (137-145) mmol/L Potassium (3.6-5.0) mmol/L Chloride (98-107) mmol/L Carbon Dioxide (22-30) mmol/L Anion Gap mmol/L BUN (9-20) mg/dL Creatinine (0.8-1.5) mg/dL Estimated GFR ml/min BUN/Creatinine Ratio % Glucose (75-100) mg/dL Calcium (8.4-10.2) mg/dL Magnesium (1.7-2.3) mg/dL Total Bilirubin (0.1-1.2) mg/dL AST (5-40) units/L ALT (7-56) units/L Alkaline Phosphatase (35-129) units/L Total Creatine Kinase (55-170) units/L Total Protein (6.3-8.2) g/dL Albumin (3.9-5) g/dL Albumin/Globulin Ratio % Urine Color Colorless (Yellow) Urine Turbidity Clear (Clear) Urine pH 7.0 (5.0-7.0) Ur Specific [place] 1.006 (1.003-1.030) Urine Protein 100 mg/dl (Negative) mg/dL Urine Glucose (UA) 50 (Negative) mg/dL Urine Ketones Neg (Negative) mg/dL Urine Blood Sm (Negative) Urine Nitrite Neg (Negative) Urine Bilirubin Neg (Negative) Urine Urobilinogen < 2.0 (<2.0) mg/dL Ur Leukocyte Esterase Neg (Negative) Urine WBC (Auto) 1.0 (0.0-6.0) /HPF Urine RBC (Auto) 4.0 (0.0-6.0) /HPF Urine Mucus Few /HPF 09/05/19 Range/Units 20:24 WBC (4.5-11.0) K/mm3 RBC (3.65-5.03) M/mm3 Hgb (11.8-15.2) gm/dl Hct (35.5-45.6) % MCV (84-94) fl MCH (28-32) pg MCHC (32-34) % RDW (13.2-15.2) % Plt Count (140-440) K/mm3 PT (12.2-14.9) Sec. INR (0.87-1.13) Sodium 140 (137-145) mmol/L Potassium 3.3 L (3.6-5.0) mmol/L Chloride 101.2 (98-107) mmol/L Carbon Dioxide 22 (22-30) mmol/L Anion Gap 20 mmol/L BUN 29 H (9-20) mg/dL Creatinine 2.4 H (0.8-1.5) mg/dL Estimated GFR 35 ml/min BUN/Creatinine Ratio 12 % Glucose 109 H (75-100) mg/dL Calcium 9.5 (8.4-10.2) mg/dL Magnesium 2.10 (1.7-2.3) mg/dL Total Bilirubin < 0.20 (0.1-1.2) mg/dL AST 21 (5-40) units/L ALT 15 (7-56) units/L Alkaline Phosphatase 78 (35-129) units/L Total Creatine Kinase 181 H (55-170) units/L Total Protein 8.1 (6.3-8.2) g/dL Albumin 3.9 (3.9-5) g/dL Albumin/Globulin Ratio 0.9 % Urine Color (Yellow) Urine Turbidity (Clear) Urine pH (5.0-7.0) Ur Specific [place] (1.003-1.030) Urine Protein (Negative) mg/dL Urine Glucose (UA) (Negative) mg/dL Urine Ketones (Negative) mg/dL Urine Blood (Negative) Urine Nitrite (Negative) Urine Bilirubin (Negative) Urine Urobilinogen (<2.0) mg/dL Ur Leukocyte Esterase (Negative) Urine WBC (Auto) (0.0-6.0) /HPF Urine RBC (Auto) (0.0-6.0) /HPF Urine Mucus /HPF - EKG Data -: EKG Interpreted by Ne EKG shows normal: sinus rhythm Rate: normal - EKG Data When compared to previous EKG there are: no significant change 09/05/19 23:17 EKG today shows a sinus rhythm, 79 bpm, QTC prolonged, SC interval prolonged, left ventricular hypertrophy, nonspecific ST abnormality, motion artifact, there is no endorsement of chest pain. The EKG is abnormal. EKG is not a stemi EKG appears to be unchanged from prior EKG March 2019 - Radiology Data Radiology results: report reviewed, image reviewed Print Report Referring Physician: ZOHREH BETANCUR Patient Name: LESA PINEDA Date of : 1970 Sex: Male Report Date: 2019-09-05 Report Status: Finalized Findings [facility] [address] [place] [address] XRay Report Signed Patient: LESA PINEDA MR#: [id number] : 1970 Acct:[id number] Age/Sex: 49 / M ADM Date: 09/05/19 Loc: ED Attending Dr: Ordering Physician: ZOHREH BETANCUR MD Date of Service: 09/05/19 Procedure(s): XR chest 1V ap Accession Number(s): [id number] cc: ZOHREH BETANCUR MD Fluoro Time In Minutes: CHEST 1 VIEW INDICATION: htn swollen legs. COMPARISON: 04/02/2019 FINDINGS: Support devices: None. Heart: Within normal limits. Lungs/Pleura: No acute air space or interstitial disease. Additional findings: None. IMPRESSION: 1. No acute findings. Signer Name: Price De MD Signed: 09/05/2019 9:23 PM Workstation Name: [id number] Transcribed By: JW Dictated By: Price De MD Electronically Authenticated By: Price De MD Signed Date/Time: 09/05/192122 DD/ 22 - Medical Decision Making Differential diagnosis, including not limited to: Renal insufficiency, hepatic insufficiency, venous stasis, venous reflux, venous insufficiency, fluid overload Assessment and plan: 49-year-old gentleman with a complaint of hypertension and subjective lower extremity swelling. He is afebrile with reassuring vital signs with the exception of chronic hypertension. He does not have significant ju gular venous distention, he does not have crackles or rales, lungs are clear to auscultation, x-ray the chest is unremarkable. Chronic renal insufficiency is redemonstrated on laboratory studies today. X-ray the chest is unremarkable, EKG unchanged from prior, patient resting comfortably and in no acute distress. He does not appear to have an emergent medical condition that warrants hospitalization or admission at this time. We will refill his medications, he'll need to follow up with outpatient primary care and/or cardiology. Hypertension is reviewed and appreciated, but does not require emergent de-escalation therapy. Please reference the [employer] clinical policy on hypertension which is chronic and not acutely symptomatic Critical care attestation.: If time is entered above; I have spent that time in minutes in the direct care of this critically ill patient, excluding procedure time. ED Disposition Clinical Impression: Renal insufficiency, Hypokalemia, Hypertension, Noncompliance Disposition: DC-01 TO HOME OR SELFCARE Is pt being admited?: No Does the pt Need Aspirin: No Condition: Stable Instructions: Hypertension (ED) Additional Instructions: Take the medications as directed. Recommend diet, physical activities as tolerated, avoidance of simple carbohydrates, sugary drinks. Avoid consumption of Motrin, ibuprofen, Naprosyn, Aleve. Recommend follow-up with an outpatient primary care doctor or kidney doctor within the next 2-3 weeks. Patient is found to have hypertension and elevated blood pressure in the emergency room. Recommend patient take his blood pressure medications as prescribed and directed. Not taking blood pressure medications may result in poorly controlled blood pressure, hypertension, which is a risk factor for stroke, heart attack, disability, paralysis, loss of quality of life. Please return to the emergency room right away with new, worsened or different symptoms not present on the initial emergency room evaluation. Referrals: PRIMARY CAREMD [Primary Care Provider] - 3-5 Days OMID FLOYD MD [Staff Physician] - 3-5 Days RAHAT CRUZ MD [Staff Physician] - 3-5 Days [facility] [Provider Group] - 3-5 Days
[2019-09-05 20:51] LABS: Hematocrit 36.3 % (35.5-45.6); Hemoglobin 12.3 gm/dl (11.8-15.2); Mean Corpuscular HGB Conc 34 % (32-34); Mean Corpuscular Volume 85 fl (84-94); Platelet Count 281 K/mm3 (140-440); Red Blood Count 4.28 M/mm3 (3.65-5.03); Red Cell Distribution Width 13.6 % (13.2-15.2)
[2019-09-05 21:03] LABS: INR 0.91 (0.87-1.13)
[2019-09-05 21:05] LABS: Alanine Aminotransferase 15 units/L (7-56); Albumin 3.9 g/dL (3.9-5); BUN/Creatinine Ratio 12; Blood Urea Nitrogen 29 mg/dL (9-20); Calcium 9.5 mg/dL (8.4-10.2); Hemolysis Index 10
[2019-09-05 21:06] LABS: Bilirubin,Urine NEG (Negative); Blood,Urine SM (Negative); Color,Urine Colorless (Yellow); Mucus,Urine FEW /HPF; Urobilinogen,Urine < 2.0 mg/dL (<2.0)
--- NOTE | 2019-09-05 21:27 | XRay Report ---
CHEST 1 VIEW INDICATION: htn swollen legs. COMPARISON: 04/02/2019 FINDINGS: Support devices: None. Heart: Within normal limits. Lungs/Pleura: No acute air space or interstitial disease. Additional findings: None. IMPRESSION: 1. No acute findings. Signer Name: Price De MD Signed: 09/05/2019 9:23 PM Workstation Name: [id number]
[2019-09-05 22:32] VITALS: BP 207/105
[2019-09-05] MEDS ORDERED: POTASSIUM CHLORIDE ER 20 MEQ TAB PO ONE (23:22)
== END 2019-09-05 23:52 | disposition home or self-care (01) ==
LOC: ED 19:36
DX: N28.89 Other specified disorders of kidney and ureter (principal); E87.6 Hypokalemia; I10 Essential (primary) hypertension; Z79.899 Other long term (current) drug therapy; Z86.73 Personal history of transient ischemic attack (TIA), and cerebral infarction without residual deficits
CPT/HCPCS: 36415; 71045; 80053; 81001; 82550; 83735; 85027; 85610; 93005; 93010

== ENCOUNTER 2020-01-31 09:19 | Emergency (ER) | payer MEDICAID ==
[2020-01-31] MEDS ORDERED: hydrALAZINE 20 MG/1 ML INJ IV ONE (09:53)
--- NOTE | 2020-01-31 09:53 | Emergency Department Report ---
ED Dizziness HPI - General Chief Complaint: High BP Stated Complaint: HBP/WEAKNESS Time Seen by Provider: 01/31/20 09:45 Source: patient Mode of arrival: Stretcher Limitations: No Limitations - History of Present Illness Initial Comments: 49-year-old male with history of hypertension, CVA x3 (baseline left-sided deficit), CKD, presents to ED with dizziness. Patient states he called EMS because he has been experiencing dizziness for 3 days. Patient states he believes his blood pressure was probably high because he ran out of medications 3 days ago. Patient denies headache, nausea or vomiting, chest pain, shortness of breath, fever or cough. Patient denies any worsening weakness or numbness. MD Complaint: dizziness -: days(s) (3) Timing: gradual onset Description: lightheadedness Severity: moderate Improves With: nothing Worsens With: nothing Associated Symptoms: denies: chest pain, cough, fever/chills, shortness of breath, syncope, weakness - Related Data Previous Rx's Medication Instructions Recorded Last Taken Type Aspirin [Aspirin BABY CHEW TAB] 81 mg PO QDAY #30 tab.chew 09/05/19 Unknown Rx Famotidine [Pepcid] 20 mg PO QDAY #30 tablet 09/05/19 Unknown Rx amLODIPine 10 mg PO QDAY #30 tablet 01/31/20 Unknown Rx carvediloL [Coreg] 25 mg PO Q12HR #60 tablet 01/31/20 Unknown Rx hydrALAZINE [Apresoline TAB] 50 mg PO Q12H #60 tab 01/31/20 Unknown Rx Allergies Allergy/AdvReac Type Severity Reaction Status Date / Time No Known Allergies Allergy Verified 04/01/19 21:27 ED Review of Systems ROS: Stated complaint: HBP/WEAKNESS Other details as noted in HPI Comment: All other systems reviewed and negative Constitutional: denies: chills, fever Respiratory: denies: cough, shortness of breath Cardiovascular: denies: chest pain Gastrointestinal: denies: nausea, vomiting Neurological: denies: headache, weakness, numbness, paresthesias ED Past Medical Hx - Past Medical History Previous Medical History?: Yes Hx Hypertension: Yes Hx CVA: Yes - Social History Smoking Status: Never Smoker - Medications Home Medications: Home Medications Medication Instructions Recorded Confirmed Last Taken Type Aspirin [Aspirin BABY CHEW TAB] 81 mg PO QDAY #30 tab.chew 09/05/19 Unknown Rx Famotidine [Pepcid] 20 mg PO QDAY #30 tablet 09/05/19 Unknown Rx amLODIPine 10 mg PO QDAY #30 tablet 01/31/20 Unknown Rx carvediloL [Coreg] 25 mg PO Q12HR #60 tablet 01/31/20 Unknown Rx hydrALAZINE [Apresoline TAB] 50 mg PO Q12H #60 tab 01/31/20 Unknown Rx ED Physical Exam - General Limitations: No Limitations General appearance: alert, in no apparent distress - Head Head exam: Present: atraumatic, normocephalic - Eye Eye exam: Present: normal appearance - ENT ENT exam: Present: mucous membranes moist - Neck Neck exam: Present: normal inspection - Respiratory Respiratory exam: Present: normal lung sounds bilaterally. Absent: respiratory distress - Cardiovascular Cardiovascular Exam: Present: regular rate, normal rhythm - GI/Abdominal GI/Abdominal exam: Present: soft. Absent: distended, tenderness - Extremities Exam Extremities exam: Present: normal inspection - Neurological Exam Neurological exam: Present: alert, oriented X3, motor sensory deficit (baseline left-sided weakness from prior CVA) - Psychiatric Psychiatric exam: Present: normal affect, normal mood - Skin Skin exam: Present: warm, dry, intact, normal color ED Course Vital Signs 01/31/20 01/31/20 01/31/20 09:34 09:42 10:02 Temperature 98 F Pulse Rate 89 89 Respiratory 18 16 Rate Blood Pressure 267/138 267/138 Blood Pressure [Right] O2 Sat by Pulse 99 Oximetry 01/31/20 01/31/20 01/31/20 10:15 10:44 11:00 Temperature Pulse Rate 110 H 99 H 93 H Respiratory 16 Rate Blood Pressure 257/122 Blood Pressure 245/115 254/125 [Right] O2 Sat by Pulse 99 Oximetry 01/31/20 01/31/20 01/31/20 11:47 12:24 13:24 Temperature 98.1 F Pulse Rate 90 88 84 Respiratory 16 18 Rate Blood Pressure Blood Pressure 226/115 218/112 164/82 [Right] O2 Sat by Pulse 99 Oximetry - Reevaluation(s) Reevaluation #1: 01/31/20 12:55 BP currently 161/84. Pt feeling much better. Dizziness resolved. ED Medical Decision Making - Lab Data Result diagrams: 01/31/20 10:12 01/31/20 10:07 - EKG Data -: EKG Interpreted by Me EKG shows normal: sinus rhythm, axis, intervals, QRS complexes Rate: normal - EKG Data Interpretation: other (lateral T wave inversions) - Radiology Data Radiology results: report reviewed, image reviewed - Medical Decision Making - hx CKD, renal function is stable - CT Head negative - BP improved w/ hydralazine, labetalol, and clonidine - Differential Diagnosis intracranial abnormality, HTN emergency Critical Care Time: Yes Critical care time in (mins) excluding proc time.: 35 Critical care attestation.: If time is entered above; I have spent that time in minutes in the direct care of this critically ill patient, excluding procedure time. Critical Care Time: 35 min ED Disposition Clinical Impression: Uncontrolled hypertension Disposition: TO HOME OR SELFCARE Is pt being admited?: No Condition: Stable Instructions: Hypertension (ED) Prescriptions: amLODIPine 10 mg PO QDAY #30 tablet hydrALAZINE [Apresoline TAB] 50 mg PO Q12H #60 tab carvediloL [Coreg] 25 mg PO Q12HR #60 tablet [facility] QUANG [Primary Care Provider] - 3-5 Days PRIMARY CAREMD [Referring] - 3-5 Days LOWELL SWANSON MD [Staff Physician] - 3-5 Days Time of Disposition: 12:56
[2020-01-31 10:25] LABS: Basophils # (Auto) 0.1 K/mm3 (0.0-0.1); Basophils % (Auto) 1.3 % (0.0-1.8); Eosinophils # (Auto) 0.1 K/mm3 (0.0-0.4); Eosinophils % (Auto) 1.3 % (0.0-4.3); Hematocrit 39.3 % (35.5-45.6); Hemoglobin 13.3 gm/dl (11.8-15.2); Lymphocytes % (Auto) 28.7 % (13.4-35.0); Mean Corpuscular HGB Conc 34 % (32-34); Mean Corpuscular Volume 85 fl (84-94); Monocytes # (Auto) 0.5 K/mm3 (0.0-0.8); Monocytes % (Auto) 7.9 % (0.0-7.3); Platelet Count 309 K/mm3 (140-440); Red Blood Count 4.62 M/mm3 (3.65-5.03)
[2020-01-31 10:45] LABS: Calcium 9.6 mg/dL (8.4-10.2)
--- NOTE | 2020-01-31 10:55 | Cat Scan Report ---
CT BRAIN: 01/31/2020 INDICATION / CLINICAL INFORMATION: dizziness, elevated BP. COMPARISON: None available. FINDINGS: BRAIN/INTRACRANIAL STRUCTURES: Unenhanced CT images of the brain demonstrate no evidence of acute int racranial abnormality. Ventricles and sulci are within normal limits of size and shape for a patient of this age. Numerous patchy foci of hypoattenuation are present in the basal ganglia and thalami, left greater th an right, consistent with chronic lacunar infarct. Chronic hypodensities are also noted in the rodrick b ilaterally. There is no evidence of acute ischemic injury, hemorrhage, or mass. There are no abnormal extra-axial fluid collections. EXTRACRANIAL STRUCTURES: Unremarkable. IMPRESSION: No acute abnormality. Numerous chronic lacunar changes as described above. All CT scans at this location are performed using dose reduction to ALARA by means of automated expos ure control. Signer Name: Filipe Tinoco MD Signed: 01/31/2020 10:51 AM Workstation Name: [id number]
[2020-01-31] MEDS ORDERED: cloNIDine 0.2 MG TAB PO ONE (11:49)
[2020-01-31 13:24] VITALS: BP 164/82
== END 2020-01-31 13:24 | disposition home or self-care (01) ==
LOC: ED 09:19
DX: I10 Essential (primary) hypertension (principal); Z79.899 Other long term (current) drug therapy; Z86.73 Personal history of transient ischemic attack (TIA), and cerebral infarction without residual deficits
CPT/HCPCS: 36415; 70450; 80048; 85025; 93005; 96374; 96375; 99284; J0360